=== PATIENT | male | born 1990 | race Caucasian/White ===

== ENCOUNTER 2018-04-26 10:23 | Observation (INO) | payer MEDICAID ==
[~2018-04-26] VITALS: Ht 175.3 cm; Wt 64.0 kg
[2018-04-26] MEDS ORDERED: CYCL5TAB PO (11:23)
[2018-04-26] MEDS ORDERED: SODI325T PO (11:23)
[2018-04-26] MEDS ORDERED: HYDR-3799 PO (11:23)
[2018-04-26] MEDS ORDERED: PANT40TA3 PO (11:23)
[2018-04-26] MEDS ORDERED: METO50TA PO (11:23)
[2018-04-26] MEDS ORDERED: FURO1TAB60 PO (11:23)
[2018-04-26] MEDS ORDERED: NOVORP2 SQ (11:23)
[2018-04-26] MEDS ORDERED: CLON0.1T PO (11:23)
[2018-04-26] MEDS ORDERED: SIMV20TA PO (11:23)
[2018-04-26] MEDS ORDERED: GABA300C5 PO (11:23)
[2018-04-26] MEDS ORDERED: LANTUS2P SQ (11:23)
[2018-04-26] MEDS ORDERED: AMLO10TA2 PO (11:23)
[2018-04-26 20:30] VITALS: BP 164/84; PULSE 112; RESP 17; TEMP 97.6; O2SAT 98
[2018-04-26] MEDS ORDERED: PROCHLORPERAZINE 25 MG SUPP RECTAL PRN (20:30)
[2018-04-26] MEDS ORDERED: NALOXONE HCL 0.4 MG/ML AMP IV PUSH PRN (20:30)
[2018-04-26] MEDS ORDERED: ACETAMINOPHEN 325 MG TAB PO PRN ×2 (20:30→21:15)
[2018-04-26] MEDS ORDERED: SODIUM CHLORIDE 0.9% FLUSH 10 ML FLUSH IV FLUSH PRN ×2 (20:30→21:15)
[2018-04-26] MEDS ORDERED: ONDANSETRON ODT 4 MG TAB SL PRN (20:30)
[2018-04-26] MEDS ORDERED: diphenhydrAMINE HCL 25 MG CAP PO PRN (21:15)
[2018-04-26] MEDS ORDERED: ONDANSETRON HCL 4 MG/2 ML VIAL IV PUSH PRN (21:15)
[2018-04-26] MEDS ORDERED: ALBUMIN 25% INJ 100 ML IV PRN (21:15)
[2018-04-26] MEDS ORDERED: NITROGLYCERIN 0.4 MG SL 25 TABS/BTL SL PRN (21:15)
[2018-04-26] MEDS ORDERED: SODIUM CHLOR 0.9% 1000 ML INJ 1,000 ML IV PRN (21:15)
[2018-04-26] MEDS ORDERED: EPOETIN ALFA 10,000 UNITS/ML VIAL IV PUSH PRN (21:15)
[2018-04-26] MEDS ORDERED: SODIUM CHLOR 0.9% 1000 ML INJ 1,000 ML OTHER PRN ×2 (21:15)
[2018-04-26] MEDS ORDERED: GELATIN 12 MM/7 MM FOAM TOP PRN (21:15)
[2018-04-26] MEDS ORDERED: MANNITOL 12.5 GM/50 ML VIAL IV PRN (21:15)
[2018-04-26] MEDS ORDERED: cloNIDine HCL 0.1 MG TAB PO PRN (21:15)
[2018-04-26] MEDS ORDERED: HEPARIN SODIUM - IV 10,000 UNITS/10 ML VIAL IV FLUSH PRN (21:15)
--- NOTE | 2018-04-26 21:48 | HHI.HP ---
[facility] Forest Cornejo MD Admission Diagnosis Diagnoses: Chief Complaint: nausea, missed dialysis Travel History International Travel<30 Days: No Contact w/Intl Traveler <30 Da: No History of Present Illness 28 y/o male with a history of ESRD on Hemodialysis , DM type 1, hypertension, hyperlipidemia and gastroparesis presented to the ED with complaints of nausea and diarrhea after missing his dialysis appointment yesterday. Patient states on Saturday his AV fistula infiltrated and patient was told to skip dialysis on Saturday. He states today he started with nausea, occasional vomiting and diarrhea with associated abdominal cramping. He states he did take Zofran at home but his nausea was unrelieved. He denies any associated fever, chills, chest pain or shortness of breath. Review of Systems Except as stated in HPI: all other systems reviewed are Neg Past Family Social History Past Medical History ESRD on Hemodialysis DM type 1 gastroparesis HTN HLD Past Surgical History AV Fistula Reported Medications Reported Meds & Active Scripts Active Reported Lantus Inj (Insulin Glargine) 1,000 Unit/10 Ml Vial 15 Units SQ HS Novolin R Inj (Insulin Human Regular) 1,000 Unit/10 Ml Vial 0 SQ DIRECTED Sliding Scale As Directed. Amlodipine (Amlodipine Besylate) 10 Mg Tab 10 Mg PO DAILY Metoprolol Tartrate 50 Mg Tab 50 Mg PO BID Hydralazine HCl 25 Mg Tablet 50 Mg PO TID Gabapentin 300 Mg Cap 300 Mg PO TID Simvastatin 20 Mg Tab 20 Mg PO HS Flexeril (Cyclobenzaprine HCl) 5 Mg Tab 5 Mg PO TID PRN Pantoprazole (Pantoprazole Sodium) 40 Mg Tab 40 Mg PO DAILY Clonidine (Clonidine HCl) 0.1 Mg Tab 0.1 Mg PO BID Sodium Bicarbonate 325 Mg Tab 325 Mg PO BIDPC Lasix (Furosemide) 40 Mg Tab 40 Mg PO DAILY Allergies: Coded Allergies: No Known Allergies (Unverified , 04/26/18) Active Ordered Medications Current Medications Medications (Trade) Dose Ordered Sig/Rosangela Route Start Time Stop Time Status Last Admin (NS Flush) 2 ml UNSCH PRN IV FLUSH 04/26/18 20:30 (NS Flush) 2 ml BID IV FLUSH 04/26/18 21:00 (Tylenol) 650 mg Q4H PRN PO 04/26/18 20:30 (Compazine Supp) 25 mg Q12H PRN RECTAL 04/26/18 20:30 (Heparin Inj) 5,000 units Q8H SQ 04/26/18 20:30 (Narcan Inj) 0.4 mg UNSCH PRN IV PUSH 04/26/18 20:30 (Zofran Odt) 4 mg Q6H PRN SL 04/26/18 20:30 (Flagyl) 500 mg Q6HR PO 04/27/18 00:00 Sodium Chloride 1,000 ml @ 0 mls/hr Q0M PRN OTHER 04/26/18 21:15 (Heparin Inj) 8,000 units UNSCH PRN IV FLUSH 04/26/18 21:15 Sodium Chloride 1,000 ml @ 200 mls/hr Q5H PRN IV 04/26/18 21:15 Sodium Chloride 1,000 ml @ 0 mls/hr Q0M PRN OTHER 04/26/18 21:15 (Mannitol Inj) 12.5 gm UNSCH PRN IV 04/26/18 21:15 Albumin Human 100 ml @ 60 mls/hr UNSCH PRN IV 04/26/18 21:15 (NS Flush) 5 ml UNSCH PRN IV FLUSH 04/26/18 21:15 (Zofran Inj) 4 mg UNSCH PRN IV PUSH 04/26/18 21:15 (Tylenol) 650 mg UNSCH PRN PO 04/26/18 21:15 (Benadryl) 25 mg UNSCH PRN PO 04/26/18 21:15 (Nitrostat Sl) 0.4 mg UNSCH PRN SL 04/26/18 21:15 (Catapres) 0.1 mg UNSCH PRN PO 04/26/18 21:15 (Epogen Inj) 4,000 units UNSCH PRN IV PUSH 04/26/18 21:15 (Gelfoam 12 Mm/7 Mm Top) 1 foam UNSCH PRN TOP 04/26/18 21:15 Family History Patient denies any family history no heart disease or cancer Social History Tobacco use: Denies Alcohol use: Denies Illicit drug use: Marijuana occasionally Physical Exam Vital Signs Vital Signs Date Time Temp Pulse Resp B/P (MAP) Pulse Ox O2 Delivery O2 Flow Rate FiO2 04/26/18 20:30 97.6 112 17 164/84 (110) 98 Physical Exam GENERAL: This is a well-nourished, well-developed patient, in no apparent distress. SKIN: No rashes, ecchymoses or lesions. Cool and dry. HEAD: Atraumatic. Normocephalic. EYES: Pupils equal round and reactive. CARDIOVASCULAR: Regular rate and rhythm without murmurs, gallops, or rubs. RESPIRATORY: Clear to auscultation. Breath sounds equal bilaterally. No wheezes , rales, or rhonchi. GASTROINTESTINAL: Abdomen soft, tender, nondistended. MUSCULOSKELETAL: Extremities without clubbing, cyanosis, or edema. No calf tenderness. NEUROLOGICAL: Awake and alert. Normal speech. Caprini VTE Risk Assessment Caprini VTE Risk Assessment: No/Low Risk (score <= 1) Caprini Risk Assessment Model Point Value = 1 Point Value = 2 Point Value = 3 Point Value = 5 Age 41-60 Minor surgery BMI > 25 kg/m2 Swollen legs Varicose veins or History of unexplained or recurrent spontaneous Oral contraceptives or hormone replacement Sepsis (< 1 month) Serious lung disease, including pneumonia (< 1 month) Abnormal pulmonary function Acute myocardial infarction Congestive heart failure (< 1 month) History of inflammatory bowel disease Medical patient at bed rest Age 61-74 Arthroscopic surgery Major open surgery (> 45 min) Laparoscopic surgery (> 45 min) Malignancy Confined to bed (> 72 hours) Immobilizing plaster cast Central venous access Age >= 75 History of VTE Family history of VTE Factor V Leiden Prothrombin [id number] Lupus anticoagulant Anticardiolipin antibodies Elevated serum homocysteine Heparin-induced thrombocytopenia Other congenital or acquired thrombophilia Stroke (< 1 month) Elective arthroplasty Hip, pelvis, or leg fracture Acute spinal cord injury (< 1 month) Prophylaxis Regimen Total Risk Factor Score Risk Level Prophylaxis Regimen 0-1 Low Early ambulation 2 Moderate Order ONE of the following: *Sequential Compression Device (SCD) *Heparin 5000 units SQ BID 3-4 Higher Order ONE of the following medications: *Heparin 5000 units SQ TID *Enoxaparin/Lovenox 40 mg SQ daily (WT < 150 kg, CrCl > 30 mL/min) *Enoxaparin/Lovenox 30 mg SQ daily (WT < 150 kg, CrCl > 10-29 mL/min) *Enoxaparin/Lovenox 30 mg SQ BID (WT < 150 kg, CrCl > 30 mL/min) AND/OR *Sequential Compression Device (SCD) 5 or more Highest Order ONE of the following medications: *Heparin 5000 units SQ TID (Preferred with Epidurals) *Enoxaparin/Lovenox 40 mg SQ daily (WT < 150 kg, CrCl > 30 mL/min) *Enoxaparin/Lovenox 30 mg SQ daily (WT < 150 kg, CrCl > 10-29 mL/min) *Enoxaparin/Lovenox 30 mg SQ BID (WT < 150 kg, CrCl > 30 mL/min) AND *Sequential Compression Device (SCD) Assessment and Plan Assessment and Plan 28 y/o male with a history of ESRD on Hemodialysis , DM type 1, hypertension, hyperlipidemia and gastroparesis presented to the ED with complaints of nausea and diarrhea after missing his dialysis appointment yesterday. ESRD, dialysis held due to infiltrated AV fistula, now with nausea and vomiting -Consult nephrology, patient known to Dr. Bonilla -Renal diet -Anti-emetics as needed C. difficile acute -C. difficile stool culture positive -Flagyl 500 mg p.o. every 8h -Lactinex 3 times daily -Contact isolation Diabetes, chronic, type I, patient is a brittle diabetic at times -Resume long-acting home medications -Accu-Cheks with sliding scale insulin Hypertension, chronic -Resume home medications amlodipine, metoprolol, hydralazine and clonidine, monitor vitals DVT prophylaxis: Heparin sq Discussed Condition With Patient and RN Ewa Johnson Apr 26, 2018 21:48
[2018-04-26] MEDS ORDERED: CYCLOBENZAPRINE HCL 10 MG TAB PO PRN (22:00)
[2018-04-26 22:13] VITALS: PULSE 97
[2018-04-26] MEDS: SODIUM CHLORIDE 0.9% FLUSH 10 ML FLUSH IV FLUSH SCH (22:18)
[2018-04-26] MEDS: HEPARIN SODIUM - SQ 10,000 UNITS/ML VIAL SQ SCH (22:18)
[2018-04-26] MEDS: INSULIN DETEMIR 100 UNITS/ML VIAL SQ SCH (22:18)
[2018-04-26] MEDS: cloNIDine HCL 0.1 MG TAB PO SCH (22:18)
[2018-04-26] MEDS: SODIUM BICARBONATE 325 MG TAB PO SCH (22:18)
[2018-04-26] MEDS: PRAVASTATIN SOD 40 MG TAB PO SCH (22:19)
[2018-04-26] MEDS: METOPROLOL TARTRATE 50 MG TAB PO SCH (22:19)
[2018-04-27] VITALS (10 sets, daily range): BP systolic 13–159; BP diastolic 58–92; PULSE 91–114; RESP 16–17; TEMP 97.5–98.6; O2SAT 97–99
[2018-04-27] MEDS ORDERED: DEXTROSE 50% IN WATER 50 ML VIAL(D50) IV PUSH PRN (00:30)
[2018-04-27] MEDS ORDERED: GLUCAGON 1 MG/ML VIAL OTHER PRN (00:30)
[2018-04-27] MEDS ORDERED: metroNIDAZOLE 500 MG TAB PO SCH ×2 (02:00)
[2018-04-27] MEDS: HEPARIN SODIUM - SQ 10,000 UNITS/ML VIAL SQ SCH ×3 (04:47→20:55)
[2018-04-27 05:13] LABS: AUTOMATED NEUTROPHIL # 5.8 TH/MM3 (1.8-7.7); BASOPHIL % 0.4 % (0.0-2.0); EOSINOPHIL # 0.6 TH/MM3 (0-0.4); EOSINOPHIL % 6.5 % (0.0-4.0); HEMATOCRIT 32.3 % (39.0-51.0); HEMOGLOBIN 10.9 GM/DL (13.0-17.0); LYMPH % 11.7 % (9.0-44.0); MEAN CELL VOLUME 95.5 FL (80.0-100.0); MEAN CORPUSCULAR HEMOGLOBIN 32.2 PG (27.0-34.0); MEAN CORPUSCULAR HGB CONC 33.7 % (32.0-36.0); MEAN PLATELET VOLUME 7.2 FL (7.0-11.0); MONOCYTE # 1.4 TH/MM3 (0-0.9); NEUT % 65.4 % (16.0-70.0); PLATELET COUNT 286 TH/MM3 (150-450); RED BLOOD COUNT 3.39 MIL/MM3 (4.50-5.90); RED CELL DISTRIBUTION WIDTH 15.3 % (11.6-17.2); WHITE BLOOD COUNT 8.9 TH/MM3 (4.0-11.0)
[2018-04-27 05:39] LABS: CALCIUM 8.6 MG/DL (8.5-10.1); CREATININE 7.57 MG/DL (0.60-1.30); PHOSPHORUS 4.7 MG/DL (2.5-4.9)
[2018-04-27] MEDS: INSULIN ASPART SUPPLEMENTAL SCALE SQ SCH ×4 (08:00→21:24)
[2018-04-27] MEDS: FUROSEMIDE 40 MG TAB PO SCH (09:00)
[2018-04-27] MEDS: cloNIDine HCL 0.1 MG TAB PO SCH ×2 (09:00→20:57)
[2018-04-27] MEDS: LACTOBACILLUS ACIDOPHILUS TAB PO SCH ×3 (09:00→17:40)
[2018-04-27] MEDS: GABAPENTIN 300 MG CAP PO SCH ×3 (09:00→17:40)
[2018-04-27] MEDS: PANTOPRAZOLE SOD 40 MG DELAYED RELEASE TAB PO SCH (09:00)
[2018-04-27] MEDS: METOPROLOL TARTRATE 50 MG TAB PO SCH ×2 (09:00→20:56)
[2018-04-27] MEDS: SODIUM BICARBONATE 325 MG TAB PO SCH ×2 (09:00→17:40)
[2018-04-27] MEDS: hydrALAZINE HCL 25 MG TAB PO SCH ×3 (09:00→17:41)
--- NOTE | 2018-04-27 10:12 | PD.CONS ---
HPI Service Nephrology Consult Requested By Dr. Mary Reason for Consult ESRD Primary Care Physician Forest Cornejo MD History of Present Illness Patient is a 28-year-old white male with history of insulin-dependent diabetes since age 7 with complications including diabetic nephropathy, end-stage renal disease, diabetic gastroparesis, neuropathy and retinopathy, patient has been admitted after missing his dialysis on Saturday, he stated he went for dialysis and there was infiltration of his fistula, on Saturday he developed nausea, vomiting with diarrhea and presented to the emergency where he was treated and kept for observation, he denies any chest pain or shortness of breath. Review of Systems Constitutional: COMPLAINS OF: Fatigue Eyes: COMPLAINS OF: Vision loss (Left eye) Ears, nose, mouth, throat: DENIES: Tinnitus, Hearing loss, Vertigo, Nasal discharge, Oral lesions, Throat pain, Hoarseness, Ear Pain, Running Nose, Epistaxis, Sinus Pain, Toothache, Odynophagia Respiratory: DENIES: Apneas, Cough, Snoring, Wheezing, Hemoptysis, Sputum production, Shortness of breath Cardiovascular: DENIES: Chest pain, Palpitations, Syncope, Dyspnea on Exertion , PND, Lower Extremity Edema, Orthopnea, Claudication Gastrointestinal: COMPLAINS OF: Nausea, Vomiting Genitourinary: COMPLAINS OF: Urinary frequency Musculoskeletal: DENIES: Joint pain, Muscle aches, Stiffness, Joint Swelling, Back pain, Neck pain Integumentary: DENIES: Abnormal pigmentation, Nail changes, Pruritus, Rash Hematologic/lymphatic: DENIES: Bruising, Lymphadenopathy Immunologic/allergic: DENIES: Eczema, Urticaria Psychiatric: DENIES: Anxiety, Confusion, Mood changes, Depression, Hallucinations, Agitation, Suicidal Ideation, Homicidal Ideation, Delusions Past Family Social History Allergies: Coded Allergies: No Known Allergies (Unverified , 04/26/18) Past Medical History ESRD IDDM Retinopathy Gastroparesis Hypertension Anemia Secondary hyperparathyroidism Past Surgical History AV fistula left arm Eye surgery Reported Medications Reported Meds & Active Scripts Active Reported Lantus Inj (Insulin Glargine) 1,000 Unit/10 Ml Vial 15 Units SQ HS Novolin R Inj (Insulin Human Regular) 1,000 Unit/10 Ml Vial 0 SQ DIRECTED Sliding Scale As Directed. Amlodipine (Amlodipine Besylate) 10 Mg Tab 10 Mg PO DAILY Metoprolol Tartrate 50 Mg Tab 50 Mg PO BID Hydralazine HCl 25 Mg Tablet 50 Mg PO TID Gabapentin 300 Mg Cap 300 Mg PO TID Simvastatin 20 Mg Tab 20 Mg PO HS Flexeril (Cyclobenzaprine HCl) 5 Mg Tab 5 Mg PO TID PRN Pantoprazole (Pantoprazole Sodium) 40 Mg Tab 40 Mg PO DAILY Clonidine (Clonidine HCl) 0.1 Mg Tab 0.1 Mg PO BID Sodium Bicarbonate 325 Mg Tab 325 Mg PO BIDPC Lasix (Furosemide) 40 Mg Tab 40 Mg PO DAILY Active Ordered Medications Current Medications Medications (Trade) Dose Ordered Sig/Rosangela Route Start Time Stop Time Status Last Admin (NS Flush) 2 ml UNSCH PRN IV FLUSH 04/26/18 20:30 (NS Flush) 2 ml BID IV FLUSH 04/26/18 21:00 04/26/18 22:18 (Tylenol) 650 mg Q4H PRN PO 04/26/18 20:30 (Compazine Supp) 25 mg Q12H PRN RECTAL 04/26/18 20:30 (Heparin Inj) 5,000 units Q8H SQ 04/26/18 20:30 04/27/18 04:47 (Narcan Inj) 0.4 mg UNSCH PRN IV PUSH 04/26/18 20:30 (Zofran Odt) 4 mg Q6H PRN SL 04/26/18 20:30 Sodium Chloride 1,000 ml @ 0 mls/hr Q0M PRN OTHER 04/26/18 21:15 04/27/18 09:04 (Heparin Inj) 8,000 units UNSCH PRN IV FLUSH 04/26/18 21:15 Sodium Chloride 1,000 ml @ 200 mls/hr Q5H PRN IV 04/26/18 21:15 Sodium Chloride 1,000 ml @ 0 mls/hr Q0M PRN OTHER 04/26/18 21:15 (Mannitol Inj) 12.5 gm UNSCH PRN IV 04/26/18 21:15 Albumin Human 100 ml @ 60 mls/hr UNSCH PRN IV 04/26/18 21:15 (NS Flush) 5 ml UNSCH PRN IV FLUSH 04/26/18 21:15 (Zofran Inj) 4 mg UNSCH PRN IV PUSH 04/26/18 21:15 (Tylenol) 650 mg UNSCH PRN PO 04/26/18 21:15 (Benadryl) 25 mg UNSCH PRN PO 04/26/18 21:15 (Nitrostat Sl) 0.4 mg UNSCH PRN SL 04/26/18 21:15 (Catapres) 0.1 mg UNSCH PRN PO 04/26/18 21:15 (Epogen Inj) 4,000 units UNSCH PRN IV PUSH 04/26/18 21:15 04/27/18 09:03 (Gelfoam 12 Mm/7 Mm Top) 1 foam UNSCH PRN TOP 04/26/18 21:15 04/27/18 09:04 (Norvasc) 10 mg DAILY PO 04/27/18 09:00 (Catapres) 0.1 mg BID PO 04/26/18 22:00 04/26/18 22:18 (Flexeril) 5 mg TID PRN PO 04/26/18 22:00 (Lasix) 40 mg DAILY PO 04/27/18 09:00 (Neurontin) 300 mg TID PO 04/27/18 09:00 (Apresoline) 50 mg TID PO 04/27/18 09:00 (Levemir Inj) 15 units HS SQ 04/26/18 22:00 04/26/18 22:18 (Lopressor) 50 mg BID PO 04/26/18 22:00 04/26/18 22:19 (Protonix) 40 mg DAILY PO 04/27/18 09:00 (Sodium Bicarbonate) 325 mg BIDPC PO 04/26/18 22:00 04/26/18 22:18 (Pravachol) 40 mg HS PO 04/26/18 22:00 04/26/18 22:19 (D50w (Vial) Inj) 50 ml UNSCH PRN IV PUSH 04/27/18 00:30 (Glucagon Inj) 1 mg UNSCH PRN OTHER 04/27/18 00:30 (NovoLOG SUPPLEMENTAL SCALE) 1 ACHS SLIDING SCALE SQ 04/27/18 08:00 (Lactinex) 1 tab TID PO 04/27/18 09:00 (VANCOMYCIN for oral use only) 250 mg QID PO 04/27/18 13:00 Family History Noncontributory Social History Denies smoking currently used to smoke in the past, denies alcohol intake Physical Exam Vital Signs Vital Signs Date Time Temp Pulse Resp B/P (MAP) Pulse Ox O2 Delivery O2 Flow Rate FiO2 04/27/18 09:24 97.7 91 17 139/89 (106) 98 04/27/18 04:00 97 04/27/18 04:00 97.5 110 17 150/82 (104) 99 04/27/18 01:09 99 21 04/27/18 00:00 91 04/27/18 00:00 97.9 105 17 159/87 (111) 99 04/26/18 22:13 97 04/26/18 20:30 97.6 112 17 164/84 (110) 98 Physical Exam GENERAL: Well-nourished, well-developed patient. SKIN: Warm and dry. HEAD: Normocephalic. EYES: No scleral icterus. No injection or drainage. NECK: Supple, trachea midline. No JVD or lymphadenopathy. CARDIOVASCULAR: Regular rate and rhythm without murmurs, gallops, or rubs. RESPIRATORY: Breath sounds equal bilaterally. No accessory muscle use. GASTROINTESTINAL: Abdomen soft, non-tender, nondistended. EXTREMITIES: No cyanosis, or edema. AV fistula left arm NEUROLOGICAL: Awake, alert, and oriented x 3. Non-focal. Laboratory Laboratory Tests Test 04/26/18 22:29 04/27/18 05:01 Hepatitis A IgM Antibody NONREACTIVE Hepatitis B Surface Antigen NONREACTIVE Hepatitis B Core IgM Antibody NONREACTIVE Hepatitis C IgG Antibody NONREACTIVE White Blood Count 8.9 Red Blood Count 3.39 Hemoglobin 10.9 Hematocrit 32.3 Mean Corpuscular Volume 95.5 Mean Corpuscular Hemoglobin 32.2 Mean Corpuscular Hemoglobin Concent 33.7 Red Cell Distribution Width 15.3 Platelet Count 286 Mean Platelet Volume 7.2 Neutrophils (%) (Auto) 65.4 Lymphocytes (%) (Auto) 11.7 Monocytes (%) (Auto) 16.0 Eosinophils (%) (Auto) 6.5 Basophils (%) (Auto) 0.4 Neutrophils # (Auto) 5.8 Lymphocytes # (Auto) 1.0 Monocytes # (Auto) 1.4 Eosinophils # (Auto) 0.6 Basophils # (Auto) 0.0 CBC Comment DIFF FINAL Differential Comment Blood Urea Nitrogen 54 Creatinine 7.57 Random Glucose 72 Calcium Level 8.6 Phosphorus Level 4.7 Sodium Level 137 Potassium Level 4.8 Chloride Level 102 Carbon Dioxide Level 24.0 Anion Gap 11 Estimat Glomerular Filtration Rate 9 Result Diagram: 04/27/18 0501 04/27/18 050 Assessment and Plan Problem List: (1) ESRD (end stage renal disease) on dialysis ICD Codes: N18.6 - End stage renal disease; Z99.2 - Dependence on renal dialysis Plan: Patient is seen during hemodialysis tolerating it well continue supportive care ultrafiltration 3 L As tolerated, patient goes on Saturday, Saturday , Saturday for dialysis in [facility] follows with Dr. Bonilla Once discharged he can go back to his routine (2) Hypertension ICD Codes: I10 - Essential (primary) hypertension Plan: Continue to monitor (3) IDDM (insulin dependent diabetes mellitus) ICD Codes: E11.9 - Type 2 diabetes mellitus without complications; Z79.4 - moth exterminator (current) use of insulin Plan: On insulin monitor blood glucose (4) Gastroparesis ICD Codes: K31.84 - Gastroparesis Plan: Improved (5) Clostridium difficile colitis ICD Codes: A04.72 - Enterocolitis due to Clostridium difficile, not specified as recurrent Plan: Detected positive he is being treated with p.o. vancomycin Anastacio Jacob MD Apr 27, 2018 10:12
[2018-04-27] MEDS: VANCOMYCIN 500 MG VIAL (FOR ORAL USE ONLY) PO SCH ×3 (13:01→21:00)
--- NOTE | 2018-04-27 14:53 | HHI.PR ---
Subjective Remarks 28 y/o male with a history of ESRD on Hemodialysis M-W-F, DM type 1, hypertension, hyperlipidemia and gastroparesis presented to the ED with complaints of nausea and diarrhea after missing his dialysis appointment yesterday. Patient states on Saturday his AV fistula infiltrated and patient was told to skip dialysis on Saturday. He states today he started with nausea, occasional vomiting and diarrhea with associated abdominal cramping. He states he did take Zofran at home but his nausea was unrelieved. He denies any associated fever, chills, chest pain or shortness of breath. 6-10 POSITIVE C. DIFF START ON ORAL VANCO WILL NEED TREATMENT FOR 4 W[address] RN AND PT AND CM WILL HAVE HD TOMORROW AND CAN BE DCED TO HOME AFTER HD TOMORROW WILL NEED RX FRO VANCO PO AT DC DC TOMORROW AFTER HD Objective Vitals Vital Signs Date Time Temp Pulse Resp B/P (MAP) Pulse Ox O2 Delivery O2 Flow Rate FiO2 04/27/18 13:09 98.1 97 17 146/92 (110) 98 04/27/18 09:24 97.7 91 17 139/89 (106) 98 04/27/18 04:00 97 04/27/18 04:00 97.5 110 17 150/82 (104) 99 04/27/18 01:09 99 21 04/27/18 00:00 91 04/27/18 00:00 97.9 105 17 159/87 (111) 99 04/26/18 22:13 97 04/26/18 20:30 97.6 112 17 164/84 (110) 98 I/O 04/26/18 04/26/18 04/26/18 04/27/18 04/27/18 04/27/18 07:00 15:00 23:00 07:00 15:00 23:00 Intake Total 240 ml Output Total 3000 ml Balance 240 ml -3000 ml Intake Oral 240 ml Output Hemodialysis 3000 ml # Voids 3 # Bowel Movements 10 Result Diagram: 04/27/18 0501 04/27/18 0501 Other Results Laboratory Tests Test 04/26/18 22:29 04/27/18 05:01 Hepatitis A IgM Antibody NONREACTIVE Hepatitis B Surface Antigen NONREACTIVE Hepatitis B Core IgM Antibody NONREACTIVE Hepatitis C IgG Antibody NONREACTIVE White Blood Count 8.9 TH/MM3 Red Blood Count 3.39 MIL/MM3 Hemoglobin 10.9 GM/DL Hematocrit 32.3 % Mean Corpuscular Volume 95.5 FL Mean Corpuscular Hemoglobin 32.2 PG Mean Corpuscular Hemoglobin Concent 33.7 % Red Cell Distribution Width 15.3 % Platelet Count 286 TH/MM3 Mean Platelet Volume 7.2 FL Neutrophils (%) (Auto) 65.4 % Lymphocytes (%) (Auto) 11.7 % Monocytes (%) (Auto) 16.0 % Eosinophils (%) (Auto) 6.5 % Basophils (%) (Auto) 0.4 % Neutrophils # (Auto) 5.8 TH/MM3 Lymphocytes # (Auto) 1.0 TH/MM3 Monocytes # (Auto) 1.4 TH/MM3 Eosinophils # (Auto) 0.6 TH/MM3 Basophils # (Auto) 0.0 TH/MM3 CBC Comment DIFF FINAL Differential Comment Blood Urea Nitrogen 54 MG/DL Creatinine 7.57 MG/DL Random Glucose 72 MG/DL Calcium Level 8.6 MG/DL Phosphorus Level 4.7 MG/DL Sodium Level 137 MEQ/L Potassium Level 4.8 MEQ/L Chloride Level 102 MEQ/L Carbon Dioxide Level 24.0 MEQ/L Anion Gap 11 MEQ/L Estimat Glomerular Filtration Rate 9 ML/MIN Objective Remarks GENERAL: AWAKE AND ALERT AND ORIENTED X3 TALKATIVE AND COOPERATIVE SKIN: Warm and dry. MULTIPLE TATTOOS ALL OVER LEFT UE HD ACCESS HEAD: Atraumatic. Normocephalic. EYES: Pupils equal and round. No scleral icterus. No injection or drainage. ENT: No nasal bleeding or discharge. Mucous membranes pink and moist. TONGUE MIDLINE NECK: Trachea midline. No JVD. CARDIOVASCULAR: Regular rate and rhythm. S1, S2 NO S3 OR S4 RESPIRATORY: No accessory muscle use. Clear to auscultation. Breath sounds equal bilaterally. GASTROINTESTINAL: Abdomen soft, non-tender, nondistended. Hepatic and splenic margins not palpable. MUSCULOSKELETAL: Extremities without clubbing, cyanosis, or edema. No obvious deformities. LEFT UE HD ACCESS [employer]UIT NEUROLOGICAL: Awake and alert. No obvious cranial nerve deficits. Motor grossly within normal limits. Five out of 5 muscle strength in the arms and legs. Normal speech. PSYCHIATRIC: Appropriate mood and affect; insight and judgment normal. Procedures HD Medications and IVs Current Medications Sodium Chloride (NS Flush) 2 ml UNSCH PRN IV FLUSH FLUSH AFTER USING IV ACCESS ; Start 04/26/18 at 20:30 Sodium Chloride (NS Flush) 2 ml BID IV FLUSH Last administered on 04/26/18at 22: 18; Start 04/26/18 at 21:00 Acetaminophen (Tylenol) 650 mg Q4H PRN PO TEMP > 100.4; Start 04/26/18 at 20:30 Prochlorperazine (Compazine Supp) 25 mg Q12H PRN RECTAL NAUSEA OR VOMITING; Start 04/26/18 at 20:30 Heparin Sodium (Porcine) (Heparin Inj) 5,000 units Q8H SQ Last administered on 04/27/18at 13:02; Start 04/26/18 at 20:30 Naloxone HCl (Narcan Inj) 0.4 mg UNSCH PRN IV PUSH SEE LABEL COMMENTS; Start at 20:30 Ondansetron HCl (Zofran Odt) 4 mg Q6H PRN SL nausea; Start 04/26/18 at 20:30 Metronidazole (Flagyl) 500 mg Q6HR PO ; Start 04/27/18 at 00:00; Stop 04/27/18 at 00:00; Status DC Sodium Chloride 1,000 ml @ 0 mls/hr Q0M PRN OTHER For Prime & Rinse Back Last administered on 04/27/18at 09:04; Start 04/26/18 at 21:15 Heparin Sodium (Porcine) (Heparin Inj) 8,000 units UNSCH PRN IV FLUSH WITH DIALYSIS; Start 04/26/18 at 21:15 Sodium Chloride 1,000 ml @ 200 mls/hr Q5H PRN IV WITH DIALYSIS; Start 04/26/18 at 21:15 Sodium Chloride 1,000 ml @ 0 mls/hr Q0M PRN OTHER WITH DIALYSIS; Start 04/26/18 at 21:15 Mannitol (Mannitol Inj) 12.5 gm UNSCH PRN IV WITH DIALYSIS; Start 04/26/18 at 21 :15 Albumin Human 100 ml @ 60 mls/hr UNSCH PRN IV WITH DIALYSIS; Start 04/26/18 at 21:15 Sodium Chloride (NS Flush) 5 ml UNSCH PRN IV FLUSH WITH DIALYSIS; Start at 21:15 Ondansetron HCl (Zofran Inj) 4 mg UNSCH PRN IV PUSH WITH DIALYSIS; Start at 21:15 Acetaminophen (Tylenol) 650 mg UNSCH PRN PO for headach, pain, temp > 101F; Start 04/26/18 at 21:15 Diphenhydramine HCl (Benadryl) 25 mg UNSCH PRN PO for hives/itching/anaphylaxis ; Start 04/26/18 at 21:15 Nitroglycerin (Nitrostat Sl) 0.4 mg UNSCH PRN SL CHEST PAIN; Start 04/26/18 at 21:15 Clonidine (Catapres) 0.1 mg UNSCH PRN PO for BP > 180/100 X 2 readings; Start 04/26/18 at 21:15 Epoetin Bonifacio (Epogen Inj) 4,000 units UNSCH PRN IV PUSH WITH DIALYSIS Last administered on 04/27/18at 09:03; Start 04/26/18 at 21:15 Gelatin (Gelfoam 12 Mm/7 Mm Top) 1 foam UNSCH PRN TOP SEE LABEL COMMENTS Last administered on 04/27/18at 09:04; Start 04/26/18 at 21:15 Metronidazole (Flagyl) 500 mg Q8H PO Last administered on 04/27/18at 03:06; Start 04/27/18 at 02:00; Stop 04/27/18 at 09:59; Status DC Amlodipine Besylate (Norvasc) 10 mg DAILY PO ; Start 04/27/18 at 09:00 Clonidine (Catapres) 0.1 mg BID PO Last administered on 04/26/18at 22:18; Start 04/26/18 at 22:00 Cyclobenzaprine HCl (Flexeril) 5 mg TID PRN PO MUSCLE SPASM; Start 04/26/18 at 22:00 Furosemide (Lasix) 40 mg DAILY PO ; Start 04/27/18 at 09:00 Gabapentin (Neurontin) 300 mg TID PO Last administered on 04/27/18at 13:01; Start 04/27/18 at 09:00 Hydralazine HCl (Apresoline) 50 mg TID PO Last administered on 04/27/18at 13:01 ; Start 04/27/18 at 09:00 Insulin Detemir (Levemir Inj) 15 units HS SQ Last administered on 04/26/18at 22: 18; Start 04/26/18 at 22:00 Metoprolol Tartrate (Lopressor) 50 mg BID PO Last administered on 04/26/18at 22: 19; Start 04/26/18 at 22:00 Pantoprazole Sodium (Protonix) 40 mg DAILY PO ; Start 04/27/18 at 09:00 Sodium Bicarbonate (Sodium Bicarbonate) 325 mg BIDPC PO Last administered on 04/26/18at 22:18; Start 04/26/18 at 22:00 Pravastatin Sodium (Pravachol) 40 mg HS PO Last administered on 04/26/18at 22:19 ; Start 04/26/18 at 22:00 Dextrose (D50w (Vial) Inj) 50 ml UNSCH PRN IV PUSH HYPOGLYCEMIA-SEE COMMENTS; Start 04/27/18 at 00:30 Glucagon (Glucagon Inj) 1 mg UNSCH PRN OTHER HYPOGLYCEMIA-SEE COMMENTS; Start 04/27/18 at 00:30 Insulin Aspart (NovoLOG SUPPLEMENTAL SCALE) 1 ACHS SLIDING SCALE SQ ; Start 09/04 at 08:00 Lactobacillus Acidophilus (Lactinex) 1 tab TID PO Last administered on at 13:00; Start 04/27/18 at 09:00 Vancomycin HCl (VANCOMYCIN for oral use only) 250 mg QID PO Last administered on 04/27/18at 13:01; Start 04/27/18 at 13:00 A/P Assessment and Plan 28 y/o male with a history of ESRD on Hemodialysis M--, DM type 1, hypertension, hyperlipidemia and gastroparesis presented to the ED with complaints of nausea and diarrhea after missing his dialysis appointment yesterday. ESRD, dialysis held due to infiltrated AV fistula, now with nausea and vomiting -Consult nephrology, patient known to Dr. Bonilla -Renal diet -Anti-emetics as needed C. difficile acute -C. difficile stool culture positive -VANCO PO 250MG PO Q6H FOR 4WEEKS AT DC -Lactinex 3 times daily -Contact isolation Diabetes, chronic, type I, patient is a brittle diabetic at times -Resume long-acting home medications -Accu-Cheks with sliding scale insulin Hypertension, chronic -Resume home medications amlodipine, metoprolol, hydralazine and clonidine, monitor vitals DVT prophylaxis: Heparin sq HOPEFULLY DC TO HOME TOMORROW AFTER HD Discharge Planning DC TOMORROW AFTER HD Oleg Coronado DO Apr 27, 2018 14:53
[2018-04-27] MEDS: PRAVASTATIN SOD 40 MG TAB PO SCH (20:57)
[2018-04-27] MEDS: INSULIN DETEMIR 100 UNITS/ML VIAL SQ SCH (21:13)
[2018-04-27] MEDS: SODIUM CHLORIDE 0.9% FLUSH 10 ML FLUSH IV FLUSH SCH (21:29)
[2018-04-28] VITALS: BP 125/62; PULSE 109; RESP 17; TEMP 98.6; O2SAT 95
[2018-04-28 03:57] VITALS: PULSE 87
[2018-04-28 04:00] VITALS: BP 129/67; PULSE 105; RESP 17; TEMP 98.6; O2SAT 99
[2018-04-28] MEDS: HEPARIN SODIUM - SQ 10,000 UNITS/ML VIAL SQ SCH ×2 (05:09→12:30)
[2018-04-28 08:00] VITALS: BP 139/85; PULSE 87; RESP 16; TEMP 97.9; O2SAT 99
[2018-04-28] MEDS: INSULIN ASPART SUPPLEMENTAL SCALE SQ SCH ×3 (08:00→16:42)
[2018-04-28] MEDS: GABAPENTIN 300 MG CAP PO SCH ×2 (09:01→14:25)
[2018-04-28] MEDS: cloNIDine HCL 0.1 MG TAB PO SCH (09:02)
[2018-04-28] MEDS: FUROSEMIDE 40 MG TAB PO SCH (09:02)
[2018-04-28] MEDS: METOPROLOL TARTRATE 50 MG TAB PO SCH (09:02)
[2018-04-28] MEDS: SODIUM BICARBONATE 325 MG TAB PO SCH (09:03)
[2018-04-28] MEDS: hydrALAZINE HCL 25 MG TAB PO SCH ×2 (09:03→14:26)
[2018-04-28] MEDS: LACTOBACILLUS ACIDOPHILUS TAB PO SCH ×2 (09:04→14:25)
[2018-04-28] MEDS: PANTOPRAZOLE SOD 40 MG DELAYED RELEASE TAB PO SCH (09:04)
[2018-04-28] MEDS: VANCOMYCIN 500 MG VIAL (FOR ORAL USE ONLY) PO SCH ×2 (09:11→14:27)
[2018-04-28] MEDS: SODIUM CHLORIDE 0.9% FLUSH 10 ML FLUSH IV FLUSH SCH (09:13)
[2018-04-28 10:13] VITALS: O2SAT 98
--- NOTE | 2018-04-28 11:31 | HHI.NPPN ---
Subjective History of Present Illness 28 year old with ESRD, CDIFF pos, IDDM Objective Data Data Vital Signs Date Time Temp Pulse Resp B/P (MAP) Pulse Ox O2 Delivery O2 Flow Rate FiO2 04/28/18 10:13 98 21 04/28/18 04:00 98.6 105 17 129/67 (87) 99 04/28/18 03:57 87 04/28/18 00:00 98.6 109 17 125/62 (83) 95 04/27/18 23:44 92 04/27/18 21:20 114 130/70 (90) 04/27/18 20:00 98.6 107 17 122/58 (79) 97 04/27/18 19:42 108 04/27/18 17:25 97.8 105 16 130/70 (90) 97 04/27/18 13:09 98.1 97 17 146/92 (110) 98 -: 04/27/18 0501 04/27/18 0501 Physical Exam General Appearance: Well Developed, Well Nourished Neck Neck Exam: Neck Supple Pulmonary Resp Exam: Clear Bilaterally, Breath Sounds Equal Cardiology CV Exam: Regular, Normal Sinus Rhythm Assessment/Plan Problem List: (1) ESRD (end stage renal disease) on dialysis ICD Codes: N18.6 - End stage renal disease; Z99.2 - Dependence on renal dialysis Plan: Patient is seen during hemodialysis tolerating it well continue supportive care ultrafiltration 2 L As tolerated, patient goes on Saturday, Saturday , Saturday for dialysis in [facility] follows with Dr. Bonilla Once discharged he can go back to his routine OK to dc from Nephrology (2) Hypertension ICD Codes: I10 - Essential (primary) hypertension Plan: Continue to monitor (3) IDDM (insulin dependent diabetes mellitus) ICD Codes: E11.9 - Type 2 diabetes mellitus without complications; Z79.4 - termite control technician (current) use of insulin Plan: On insulin monitor blood glucose (4) Gastroparesis ICD Codes: K31.84 - Gastroparesis Plan: Improved (5) Clostridium difficile colitis ICD Codes: A04.72 - Enterocolitis due to Clostridium difficile, not specified as recurrent Plan: Detected positive he is being treated with p.o. vancomycin Anastacio Jacob MD Apr 28, 2018 11:31
--- NOTE | 2018-04-28 15:19 | HHI.DCPOC ---
Discharge Care Plan Diagnosis: (1) ESRD (end stage renal disease) on dialysis (2) Clostridium difficile colitis (3) Hypertension (4) Diabetes Goals to Promote Your Health * To prevent worsening of your condition and complications * To maintain your health at the optimal level Directions to Meet Your Goals Take your medications as prescribed Follow your dietary instruction Follow activity as directed Keep your appointments as scheduled Take your immunizations and boosters as scheduled If your symptoms worsen call your PCP, if no PCP go to Urgent Care Center or Emergency Room Smoking is Dangerous to Your Health. Avoid second hand smoke Call the 24-hour hour crisis hotline for domestic abuse at Brynn Cartwright MD Apr 28, 2018 15:19
[2018-04-28] MEDS ORDERED: VANC125C3 PO (15:21)
--- NOTE | 2018-04-28 15:21 | HHI.DS ---
cc: Forest Cornejo MD Discharge Summary Admission Date Apr 26, 2018 at 19:30 Discharge Date: Apr 28, 2018 Admitting Diagnosis (1) ESRD (end stage renal disease) on dialysis ICD Code: N18.6 - End stage renal disease; Z99.2 - Dependence on renal dialysis (2) Clostridium difficile colitis ICD Code: A04.72 - Enterocolitis due to Clostridium difficile, not specified as recurrent (3) Diabetes ICD Code: E11.9 - Type 2 diabetes mellitus without complications (4) Hypertension ICD Code: I10 - Essential (primary) hypertension Procedures HD Brief History - From Admission 28 y/o male with a history of ESRD on Hemodialysis M-W-F, DM type 1, hypertension, hyperlipidemia and gastroparesis presented to the ED with complaints of nausea and diarrhea after missing his dialysis appointment yesterday. Patient states on Saturday his AV fistula infiltrated and patient was told to skip dialysis on Saturday. He states today he started with nausea, occasional vomiting and diarrhea with associated abdominal cramping. He states he did take Zofran at home but his nausea was unrelieved. He denies any associated fever, chills, chest pain or shortness of breath. CBC/BMP: 04/27/18 0501 04/27/18 0501 Significant Findings Laboratory Tests Test 04/26/18 22:29 04/27/18 05:01 Red Blood Count 3.39 MIL/MM3 (4.50-5.90) Hemoglobin 10.9 GM/DL (13.0-17.0) Hematocrit 32.3 % (39.0-51.0) Monocytes (%) (Auto) 16.0 % (0.0-8.0) Eosinophils (%) (Auto) 6.5 % (0.0-4.0) Monocytes # (Auto) 1.4 TH/MM3 (0-0.9) Eosinophils # (Auto) 0.6 TH/MM3 (0-0.4) Blood Urea Nitrogen 54 MG/DL (7-18) Creatinine 7.57 MG/DL (0.60-1.30) Random Glucose 72 MG/DL (74-106) Estimat Glomerular Filtration Rate 9 ML/MIN (>89) PE at Discharge GENERAL: AWAKE AND ALERT AND ORIENTED X3 TALKATIVE AND COOPERATIVE SKIN: Warm and dry. MULTIPLE TATTOOS ALL OVER LEFT UE HD ACCESS HEAD: Atraumatic. Normocephalic. EYES: Pupils equal and round. No scleral icterus. No injection or drainage. ENT: No nasal bleeding or discharge. Mucous membranes pink and moist. TONGUE MIDLINE NECK: Trachea midline. No JVD. CARDIOVASCULAR: Regular rate and rhythm. S1, S2 NO S3 OR S4 RESPIRATORY: No accessory muscle use. Clear to auscultation. Breath sounds equal bilaterally. GASTROINTESTINAL: Abdomen soft, non-tender, nondistended. Hepatic and splenic margins not palpable. MUSCULOSKELETAL: Extremities without clubbing, cyanosis, or edema. No obvious deformities. LEFT UE HD ACCESS [employer] NEUROLOGICAL: Awake and alert. No obvious cranial nerve deficits. Motor grossly within normal limits. Five out of 5 muscle strength in the arms and legs. Normal speech. PSYCHIATRIC: Appropriate mood and affect; insight and judgment normal. Pt update on day of discharge Patient reports he is feeling great. He is no longer having diarrhea. He is anxious to go home. Hospital Course 28 y/o male with a history of ESRD on Hemodialysis M-W-, DM type 1, hypertension, hyperlipidemia and gastroparesis presented to the ED with complaints of nausea and diarrhea after missing his dialysis appointment yesterday. Treatment course detailed below: ESRD, on hemodialysis. The patient was followed by nephrology. He underwent dialysis and his symptoms resolved. -Continue with his outpatient dialysis as scheduled. C. difficile acute -C. difficile stool culture positive -Patient treated with oral vancomycin. His symptoms resolved. He is discharged on oral vancomycin to complete the course of treatment. Diabetes, chronic, type I, patient is a brittle diabetic at times -Resume home dose long-acting home medications -Accu-Cheks with sliding scale insulin Hypertension, chronic -Resume home medications amlodipine, metoprolol, hydralazine and clonidine, monitor vitals Pt Condition on Discharge: Good Discharge Disposition: Discharge Home Discharge Time: <= 30 minutes Discharge Instructions DIET: Follow Instructions for: Renal Failure Diet Activities you can perform: Regular-No Restrictions Follow up Referrals: PCP Follow-up New Medications: Vancomycin (Vancomycin) 125 Mg Cap 125 MG PO QID for Infection, #32 CAP 0 Refills Continued Medications: Amlodipine (Amlodipine) 10 Mg Tab 10 MG PO DAILY for Blood Pressure Management, #30 TAB 0 Refills Clonidine (Clonidine) 0.1 Mg Tab 0.1 MG PO BID for Blood Pressure Management, #60 TAB 0 Refills Cyclobenzaprine (Flexeril) 5 Mg Tab 5 MG PO TID PRN for MUSCLE SPASM, #90 TAB 0 Refills Furosemide (Lasix) 40 Mg Tab 40 MG PO DAILY, #30 TAB 0 Refills Gabapentin (Gabapentin) 300 Mg Cap 300 MG PO TID, #90 CAP 0 Refills Hydralazine HCl (Hydralazine HCl) 25 Mg Tablet 50 MG PO TID for Blood Pressure Management, #90 TAB 0 Refills Insulin Glargine Inj (Lantus Inj) 1,000 Unit/10 Ml Vial 15 UNITS SQ HS for Blood Sugar Management, VIAL 0 Refills Insulin Human Regular Inj (Novolin R Inj) 1,000 Unit/10 Ml Vial 0 SQ DIRECTED for Blood Sugar Management, #10 ML 0 Refills Sliding Scale As Directed. Metoprolol Tartrate (Metoprolol Tartrate) 50 Mg Tab 50 MG PO BID, #60 TAB 0 Refills Pantoprazole (Pantoprazole) 40 Mg Tab 40 MG PO DAILY for Reflux, #30 TAB 0 Refills Simvastatin (Simvastatin) 20 Mg Tab 20 MG PO HS for Cholesterol Management, #30 TAB 0 Refills Sodium Bicarbonate (Sodium Bicarbonate) 325 Mg Tab 325 MG PO BIDPC, #60 TAB 0 Refills RimpeBrynn spain MD Apr 28, 2018 15:21
== END 2018-04-28 17:28 | disposition home or self-care (01) ==
LOC: PHEDDLT 16:46 → N07B 19:30 → INTOOBSV 19:30 → UNDOADMIN 19:42 → N07B 19:42
PROVIDERS: ADMIT Family Medicine; ATTEND Family Medicine
DX: A04.72 Enterocolitis due to Clostridium difficile, not specified as recurrent (principal); R11.0 Nausea; I12.0 Hypertensive chronic kidney disease with stage 5 chronic kidney disease or end stage renal disease; E10.22 Type 1 diabetes mellitus with diabetic chronic kidney disease; N18.6 End stage renal disease; E78.5 Hyperlipidemia, unspecified; D63.1 Anemia in chronic kidney disease; E10.43 Type 1 diabetes mellitus with diabetic autonomic (poly)neuropathy; E10.319 Type 1 diabetes mellitus with unspecified diabetic retinopathy without macular edema; K31.84 Gastroparesis; F12.90 Cannabis use, unspecified, uncomplicated; Z99.2 Dependence on renal dialysis
CPT/HCPCS: 71045; 80048; 80053; 80074; 82010; 82948; 83690; 84100; 85025; 87493; 90935; 96365; 96372; 96374; 96375; 99285; G0378; J1644; J1815; J2765; J7030; Q4081; G0257